=== PATIENT | female | born 1995 | race Caucasian/White ===

== ENCOUNTER 2017-06-01 13:14 | Emergency (ER) | payer OTHER ==
[~2017-06-01] VITALS: Ht 167.6 cm; Wt 127.0 kg
[2017-06-01] MEDS ORDERED: GUAIFENESIN/CODEINE 5 ML LIQUID UDC PO ONE (16:04)
[2017-06-01] MEDS ORDERED: predniSONE 20 MG TABLET PO ONE (16:04)
--- NOTE | 2017-06-01 16:15 | NUR ---
PATIENT WAS SEEN BY MD. XRAYS DONE. MEDICATIONS GIVEN ORDERED.
[2017-06-01] MEDS ORDERED: GUAIFENESIN/CODEINE 5 ML LIQUID UDC ONE (16:24)
[2017-06-01] MEDS ORDERED: predniSONE 20 MG TABLET ONE (16:25)
--- NOTE | 2017-06-01 16:29 | NUR ---
DC, RX AND FOLLOW UP INSTRUCTIONS GIVEN AND EXPLAINED TO PATIENT WHO STATES SHE UNDERSTANDS ALL INSTRUCTIONS INCLUDING CODEINE PRECAUTIONS.
--- NOTE | 2017-06-01 16:40 | NUR ---
NO NEGATIVE REACTION TO MEDS GIVEN . PATIENT STATES SHE FEELS WELL.
== END 2017-06-01 16:41 | disposition home or self-care (01) ==
LOC: ER 13:14
DX: J40 Bronchitis, not specified as acute or chronic (principal)
CPT/HCPCS: 71010; A4663; J7512